=== PATIENT | female | born 1970 | race Two or more races ===

== ENCOUNTER → 2022-07-24 09:16 | Outpatient (BNVA) | payer OTHER, SELFPAY | PROVIDERS: PCP Nurse Practitioner Gerontology; Visit Provider Internal Medicine ==

== ENCOUNTER 2022-08-01 10:10 | Outpatient (REF) | payer OTHER, SELFPAY ==
--- NOTE | 2022-08-01 11:04 | PFT_ITS ---
FLOWS: 1. FEV1 95% of predicted at 2.76 L. 2. FVC 92% of predicted at 3.38 L. 3. FEV1 to FVC ratio of 0.82. 4. No bronchodilator response. LUNG VOLUMES: 1. Total lung capacity 99% of predicted at 5.17 L. 2. Residual volume 103% of predicted at 1.91 L. 3. Slow vital capacity 97% of predicted at 3.26 L. 4. Expiratory reserve volume 84% of predicted at 0.91 L. 5. Diffusion capacity is borderline. IMPRESSION: Mild obstructive or restrictive ventilatory defect. No bronchodilator response. Essentially normal pulmonary function test. MD TYSON Acosta/MODL / [id number]
== END 2022-08-01 10:11 | disposition home or self-care (01) ==
LOC: HO.RESP 10:10
PROVIDERS: PCP Nurse Practitioner Gerontology; Visit Provider Internal Medicine
DX: R05.9 Cough, unspecified (principal); J30.9 Allergic rhinitis, unspecified
CPT/HCPCS: 94010; 94727; 94729

== ENCOUNTER → 2022-09-01 09:48 | Outpatient (BNVA) | payer OTHER, SELFPAY | PROVIDERS: PCP Nurse Practitioner Gerontology; Visit Provider Internal Medicine ==

== ENCOUNTER 2022-11-18 10:39 | Outpatient (AMB) | payer OTHER, SELFPAY ==
[2022-11-18 11:14] VITALS: BP 110/62; PULSE 69; O2SAT 98; BMI 22.5
--- NOTE | 2022-11-18 11:14 | MHC.OFFVIS ---
Intake Vital Signs 11/18/22 11:14 Height 5 ft 8 in Weight 148 lb BMI 22.5 BP 110/62 Blood Pressure Location Lt brachial Position Sitting Pulse 69 Pulse Source Pulse Oximeter Pulse Oximetry (%) 98 Oxygen Delivery Method Room Air Intake Visit Reasons: cough Intake Note: pt is here for follow up and states singular not much help, she states she wakes up everyday with a headache in center of head and under the eyes. Staff Radiation Therapist Required: No Allergies No Known Allergies Allergy (Verified 11/18/22 11:36) Medication List - Last Reconciled 11/18/22 by Bianca Murray MD fluticasone propionate 50 mcg/actuation sprays intranasal levalbuterol tartrate 45 mcg/actuation 2 puffs inhalation Q4-6H PRN 30 days mecobalamin (vitamin B12) 1,000 mcg subcut .monthly montelukast 10 mg PO DAILY 30 days Do you need a note to return to daycare/school/sports/work: No HPI cough HPI Details 52 YEARS OLD FEMALE IS BEING FOLLOWED FOR, ALLERGIC RHINITIS AND MILD BRONCHIAL ASTHMA. HER MAIN PROBLEM IS CONTINUED NASAL CONGESTION AND FRONTAL WELL SINUS HEADACHE IN THE MORNING. ON HER LAST VISIT I PRESCRIBED MONTELUKAST 10 MG DAILY BUT SHE SAY IS SHE NEVER GOT ANY PILL . SHE DOES USE MOM FLONASE SPRAY DAILY, ALSO HAS LEVALBUTEROL THAT SHE USES ONLY P.R.N. FOR WHEEZING. STILL HAS FREQUENT COUGH ESPECIALLY AT NIGHT AND IN THE MORNINGS, RELATED TO THE NASAL ALLERGY. [facility] Medical History Allergic rhinitis Bronchial asthma Cough Surgical History History of cryosurgery Hx of hemorrhoidectomy Social History Household Members: Spouse and Children Housing: House Are you a primary family day care worker to a significant other at home: No Do you presently have visiting nurse or other home services: No Patient Tobacco Use Status: Never used Tobacco Second Hand Smoke Exposure: No service: No Current occupational status: unemployed Review of Systems Const All systems reviewed & are unremarkable except as noted in HPI and below Eyes Reports no additional complaints ENT Reports nasal congestion (Mild off and on) Card Denies chest pain, Denies irregular heart rhythm and Denies leg edema Resp Reports as per HPI GI Reports heartburn (Mild intermittent) Reports no additional complaints Musc Reports no additional complaints Skin/Breast Reports system reviewed and no additional complaints, except as documented Neuro Reports no additional complaints Psych Reports no additional complaints Physical Exam Vital Signs: Last Vital Signs Pulse 69 11/18/22 11:14 BP 110/62 11/18/22 11:14 Pulse Ox 98 11/18/22 11:14 Oxygen Delivery Method Room Air 11/18/22 11:14 BMI result Body Mass Index 22.5 Const General: healthy appearing, comfortable, no acute distress, alert and awake Orientation/consciousness: patient oriented x3 HEENT Head: Yes normal to inspection General nose exam: No nasal polyps present, No nasal discharge present and Other nasal findings present (Mild nasal congestion is noted) Face and sinus: Yes sinuses nontender Mouth: oropharynx normal Throat: Yes posterior oropharynx normal Eyes General: appearance normal, both eyes and all related structures Neck Neck: Yes normal visual inspection, Yes no lymphadenopathy, Yes trachea midline and Yes no JVD Thyroid: Thyroid normal Chest Chest palpation & inspection: normal inspection of the chest, normal palpation of entire chest wall and no tenderness Resp Other: Percussion note is resonant, she has good breath sounds on both sides, on auscultation no wheezes rhonchi or crepitations are heard Cardio Palpation: normal PMI Rate: regular rate Rhythm: regular rhythm Heart sounds: no gallops and no murmurs Peripheral pulses: Peripheral pulses 2+ throughout GI Palpation (GI): Soft to palpation, Tenderness to palpation present (GI), No hepatosplenomegaly present and Palpable mass present Auscultation: normal bowel sounds Back/Spine/Pelvis Thoracic/Lumbar Spine: thoracic and lumbar spine normal to inspection Skin General skin exam: no rashes or lesions noted Neuro General: patient oriented x3 and no focal motor deficits Cranial nerves: Yes CN's II-XII intact bilaterally Extrem General: Yes normal to inspection, Yes no clubbing, cyanosis or edema and Yes no calf tenderness Psych Appearance: grossly normal and well kempt Speech and movement: Normal speech and movement present Assessment & Plan Assessment & Plan (1) Bronchial asthma: Comment: SHE DOES HAVE MILD INTERMITTENT BRONCHIAL ASTHMA RELATED TO UPPER AIRWAY ALLERGY PROBLEM. PULMONARY FUNCTION. TEST IS BASICALLY NORMAL TX ; . MAY USE BRONCHODILATOR INHALER P.R.N. BECAUSE SHE GETS, TACHYCARDIA WITH ALBUTEROL I HAVE PRESCRIBED LEVALBUTEROL INHALER TO USE 1 OR 2 PUFFS Q 4-6 HOURS P.R.N.. Code(s): J45.909 - Unspecified asthma, uncomplicated (2) Cough: Comment: The cough is mild but chronic and on a daily basis. IT IS MOSTLY DUE TO CHRONIC ALLERGIC RHINITIS . TX: WRITTEN UNDER ALLERGIC RHINITIS. Code(s): R05.9 - Cough, unspecified (3) Allergic rhinitis: Comment: She has chronic ALLERGIC RHINITIS/ SINUSITIS, around the year, with intermittent exacerbations. Educated about this problem , she has no recognizable triggers but going out in the garden area and in spring or fall her symptoms do get worse. TX : She was educated about . Her chronic problem Continue to use Flonase, 2 spray each nostril daily Loratadine 10 mg, and may take only half tablet per day p.r.n. the symptoms are worse. ALSO DO TAKE SINGULAIR 10 MG DAILY TO TAKE AT BEDTIME. Code(s): J30.9 - Allergic rhinitis, unspecified Medications: Refilled montelukast 10 mg PO DAILY 30 tabs 3RF ALLERGIC RHINITIS /SINUSITIS 30 days Coding Level of Care Code Est Pt Level 3 (42274) Diagnoses Bronchial asthma J45.909 Cough R05.9 Allergic rhinitis J30.9
== END 2022-11-18 11:38 | disposition home or self-care (01) ==
PROVIDERS: PCP Nurse Practitioner Gerontology; Visit Provider Internal Medicine
DX: J45.909 Unspecified asthma, uncomplicated (principal); R05.9 Cough, unspecified; J30.9 Allergic rhinitis, unspecified
CPT/HCPCS: 99213

== ENCOUNTER → 2022-11-18 10:39 | Outpatient (BNVA) | payer OTHER, SELFPAY | PROVIDERS: PCP Nurse Practitioner Gerontology; Visit Provider Internal Medicine ==